=== PATIENT | female | born 1995 | race Caucasian/White ===

== ENCOUNTER 2016-09-10 23:31 | Emergency (ER) | payer OTHER, BC ==
[~2016-09-10] VITALS: Ht 162.6 cm; Wt 66.0 kg
[~2016-09-10 23:31] MED LIST: Z.0.BCPILL PO
[2016-09-10 23:33] VITALS: BP 157/88; PULSE 88; RESP 15; TEMP 98.8; O2SAT 100
[2016-09-11] MEDS ORDERED: DICL75TA PO (02:37)
[2016-09-11] MEDS ORDERED: CYCL1TAB29 PO (02:37)
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
[2016-09-11] MEDS ORDERED: CYCLOBENZAPRINE HCL 10 MG TAB PO ONE (02:45)
[2016-09-11] MEDS ORDERED: IBUPROFEN 600 MG TAB PO ONE (02:45)
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
== END 2016-09-11 04:07 | disposition home or self-care (01) ==
LOC: NEPD 23:31
DX: M54.2 Cervicalgia (principal); M54.9 Dorsalgia, unspecified; V89.2XXA Person injured in unspecified motor-vehicle accident, traffic, initial encounter
CPT/HCPCS: 72040; 99284

== ENCOUNTER 2017-09-20 01:42 | Inpatient (IN) | payer OTHER ==
[2017-09-20] VITALS (119 sets, daily range): BP systolic 98–164; BP diastolic 44–132; PULSE 67–155; RESP 16–20; TEMP 98.2–99.6; O2SAT 98
[~2017-09-20 01:42] MED LIST changes: +CYCL10TA PO; +DICL75TA PO; -Z.0.BCPILL PO
[2017-09-20] MEDS ORDERED: MINERAL OIL 10 ML VIAL TOPICAL PRN (02:15)
[2017-09-20] MEDS ORDERED: LIDOCAINE HCL 1% 50 ML VIAL INFIL PRN (02:15)
[2017-09-20] MEDS ORDERED: CITRIC ACID-SODIUM CITRATE LIQ 30 ML UDC PO SCH (02:15)
[2017-09-20] MEDS ORDERED: LIDOCAINE HCL 1% 50 ML VIAL I-DERMAL PRN (02:15)
[2017-09-20] MEDS ORDERED: LACTATED RINGER'S 1000 ML INJ 1,000 ML IV SCH (02:15)
[2017-09-20] MEDS ORDERED: SODIUM CHLORID 0.9% 500 ML INJ 500 ML IV PRN (02:15)
[2017-09-20] MEDS ORDERED: OXYTOCIN 30 UNITS-500ML PREMIX 500 ML IV ONE (02:15)
[2017-09-20] MEDS ORDERED: LACTATED RINGER'S 1000 ML INJ 1,000 ML IV PRN (02:15)
--- NOTE | 2017-09-20 02:15 | PD ---
HPI Chief Complaint Contractions Date Seen: September 20, 2017 Time Seen: 02:12 Travel History International Travel<30 Days: No Contact w/Intl Traveler<30Days: No Known Affected Area: No History of Present Illness HPI 22-year-old at 40 weeks 3 days comes in complaining of contractions since earlier today. She also has watery vaginal discharge and is concerned that she may have ruptured bag of water. She denies vaginal bleeding and is having normal movement. Patient denies any antepartum complications but was somewhat noncompliant in that she did not do her glucose tolerance test. And he sure was negative on admission today the patient states that her group B strep was negative Weeks Gestation: 40 Para: 1 : 2 History Past Medical History Medical History: Denies Significant Hx Obstetric History Obstetric History Spontaneous vaginal delivery Past Surgical History Narrative Surgical Tonsillectomy Family History Family History: Negative Social History Alcohol Use: No Tobacco Use: No Substance Abuse: No Allergies-Medications (Allergen,Severity, Reaction): Coded Allergies: No Known Allergies (Verified Allergy, Unknown, 08/04/17) Home Meds Active Scripts Cyclobenzaprine (Flexeril) 10 Mg Tab, 10 MG PO TID for Muscle Spasm, #30 TAB Prov:Vee Cochran DO 09/11/[address] (Diclofenac Sodium DR) 75 Mg Tabdr, 75 MG PO BID, #20 TAB Prov:Vee Cochran DO 09/11/16 Review of Systems Except as stated in HPI: all other systems reviewed are Neg Physical Exam Narrative GENERAL: Well-nourished, well-developed patient. SKIN: Warm and dry. HEAD: Normocephalic and atraumatic. EYES: No scleral icterus. No injection or drainage. ENT: No nasal drainage noted. Mucous membranes pink. Airway patent. NECK: Supple, trachea midline. No JVD. CARDIOVASCULAR: Regular rate and rhythm without murmurs, gallops, or rubs. RESPIRATORY: Breath sounds equal bilaterally. No accessory muscle use. ABDOMEN/GI: Abdomen soft, non-tender, bowel sounds present, no rebound, no guarding Gravid to [-40] weeks size Fundal Height: [-] GENITOURINARY: External Genitalia: intact and normal in appearance BUS glands: [Normal-] Cervix: [-Mid position] Dilatation: [-4] Effacement: [-90] Station: [--1] Presentation: [-Vertex] bulging bag of water Membranes: [intact or ruptured] intact Uterine Contractions: [-] Every 3-5 minutes FHT's: Category: [-] 1 Baseline: [-] 140 Reactive: [-] Moderate Variability: [-] Moderate Decels: [-] Absent EXTREMITIES: No cyanosis or edema. BACK: Nontender without obvious deformity. No CVA tenderness. NEUROLOGICAL: Awake and alert. Motor and sensory grossly within normal limits. Five out of 5 muscle strength in all muscle groups. Normal speech. Data Data Vital Signs Reviewed: Yes Group B Strep: Negative MDM Medical Record Reviewed: Yes Plan 22-year-old who is at 40 weeks 3 days in labor Admission to labor and delivery, Dr Stearns is aware Diagnosis Diagnosis: Primary Impression: 40 weeks gestation of Additional Impression: Irregular uterine contractions Katalina Jasso MD September 20, 2017 02:15
[2017-09-20] MEDS ORDERED: SODIUM CHLOR 0.9% 1000 ML INJ 1,000 ML IV PRN (02:35)
[2017-09-20 03:34] LABS: AUTOMATED NEUTROPHIL # 9.7 TH/MM3 (1.8-7.7); BASOPHIL % 0.4 % (0.0-2.0); EOSINOPHIL # 0.1 TH/MM3 (0-0.4); HEMATOCRIT 30.8 % (35.0-46.0); HEMOGLOBIN 10.5 GM/DL (11.6-15.3); LYMPH % 15.5 % (9.0-44.0); MEAN CELL VOLUME 90.2 FL (80.0-100.0); MEAN CORPUSCULAR HEMOGLOBIN 30.8 PG (27.0-34.0); MEAN CORPUSCULAR HGB CONC 34.2 % (32.0-36.0); MEAN PLATELET VOLUME 7.4 FL (7.0-11.0); MONO % 8.6 % (0.0-8.0); MONOCYTE # 1.1 TH/MM3 (0-0.9); NEUT % 74.5 % (16.0-70.0); PLATELET COUNT 313 TH/MM3 (150-450); RED BLOOD COUNT 3.42 MIL/MM3 (4.00-5.30); RED CELL DISTRIBUTION WIDTH 13.5 % (11.6-17.2)
--- NOTE | 2017-09-20 04:24 | PD.LABORPN ---
Subjective Subjective feels like contractions have spaced out since arrival; no LOF or VB, good FM, pain manageable Objective Vital Signs Vital Signs Date Time Temp Pulse Resp B/P (MAP) Pulse Ox O2 Delivery O2 Flow Rate FiO2 09/20/17 03:25 70 09/20/17 03:23 67 124/64 (84) 09/20/17 03:20 67 09/20/17 03:15 69 09/20/17 03:10 73 09/20/17 03:05 67 09/20/17 03:00 69 09/20/17 02:50 72 09/20/17 02:45 74 09/20/17 02:40 70 09/20/17 02:35 69 09/20/17 02:30 80 09/20/17 02:25 72 09/20/17 02:20 72 09/20/17 02:15 74 09/20/17 02:10 76 09/20/17 02:05 81 09/20/17 02:04 80 141/60 (87) Objective Pelvic Exam: Cervix: [mid] Dilatation: [5] Effacement: [90] Station: [-1] Presentation: [vtx] Membranes: [AROM'd clear this check] Uterine Contractions: [q7-9 min] FHT's: Category: [I] Baseline: [130s] Reactive: [y] Variability: [y] Decels: [n] Weeks Gestation: 40 Pt started active labor?: Yes Medical induction of labor?: No Artificial rupture of membrane: Yes Artificial ROM date: September 20, 2017 Assessment/Plan Problem List: (1) Labor and delivery, indication for care ICD Codes: O75.9 - Complication of labor and delivery, unspecified Assessment and Plan 22 yo with vick IUP at 40w3d admit for labor 1) labor: progressing on own, changed from 4>5cm since admission, AROM'd clear this check, continue active mgmt, pt desires epidural 2) GBS neg 3) status: vtx Cat I tracing Altagracia Stearns MD September 20, 2017 04:24
[2017-09-20] MEDS ORDERED: ONDANSETRON HCL 4 MG/2 ML VIAL ONE (04:51)
[2017-09-20] MEDS ORDERED: fentaNYL 2MCG-BUPIV 0.125% INJ 100 ML ONE (06:21)
[2017-09-20] MEDS ORDERED: ePHEDrine/NS 25 MG/5 ML SYRINGE ONE (06:21)
[2017-09-20] MEDS ORDERED: LIDOCAINE 1%/EPINEPHrine 1:100,000 SOLN 20 ML VIAL ONE (06:30)
--- NOTE | 2017-09-20 07:23 | HHI.PR ---
DIGESTER OPERATOR HELPER Note Note S: Doing well comfortable status post epidural, no complaints. O: Exam: /-1, IUPC placed. FHTs: 120s, moderate variability, accelerations present, no decelerations. TOCO: Contractions every 3 minutes approximately A/P 22-year-old 010 at 40 weeks and 3 days here today for labor 1. IUP: Category 1 tracing -Cephalic by exam, GBS negative, EFW 7/2-8 pounds. -Female fetus 2. Labor: Status post AROM at 4:15 AM today, continue with augmentation, IUPC placed this check, may need Pitocin if inadequate MVUs or not making change, discussed arrest of labor and indications for with patient if is not making active change at this point over the next 4-6 hours -Comfortable status post epidural Gene Reyes MD September 20, 2017 07:23
[2017-09-20] MEDS ORDERED: OXYTOCIN 30 UNITS-500ML PREMIX 500 ML IV PRN ×2 (07:30→08:30)
[2017-09-20] MEDS ORDERED: ePHEDrine/NS 25 MG/5 ML SYRINGE IV PUSH PRN (09:15)
[2017-09-20] MEDS ORDERED: DO NOT ADMINISTER ANTICOAGULANTS PRN (09:15)
[2017-09-20] MEDS ORDERED: fentaNYL 2MCG-BUPIV 0.125% 100 ML EPIDURAL PRN (09:15)
[2017-09-20] MEDS ORDERED: NO SYSTEM NARCOTICS PRN (09:15)
--- NOTE | 2017-09-20 13:53 | HHI.PR ---
FENCE INSTALLER FOREMAN Note Note Care update: Nurse notified me that they have been pressuring the patient for one half hours or so, has appreciated some descent but mom is feeling somewhat exhausted, there is category 1 tracing, discussed with patient that allow 2-3 hours of pushing with noticeable descent, but there is noticed in a would be suggested, if making descent and there is maternal exhaustion and vacuum as an option. Discussed the risks and benefits, ect of a vacuum (See below). At this time will allow patient to rest for 30 minutes and return to pushing shortly after. Consent: The risks (which are relatively low and generally are viewed as acceptable for the above indications by ACOG), benefits, alternatives, expected outcomes, and risks of declining treatment were explained and discussed with the patient risks including but not limited to scalp laceration, retinal hemorrhages, brachial plexus injury, cephalohematoma formation, and subgaleal or intracranial hemorrhage, which typically are transient but can results in permanent neurological sequela. Maternal risk included but not limited to perineal laceration and failure of vacuum and potentially needed a . Gene Reyes MD September 20, 2017 13:53
[2017-09-20] MEDS ORDERED: METHYLERGONOVINE MALEATE 0.2 MG/ML VIAL ONE ×2 (16:00)
[2017-09-20] MEDS ORDERED: MEASLES, MUMPS, RUBELLA VACCINE 0.5 ML VIAL SQ ONE (16:00)
[2017-09-20] MEDS ORDERED: DIPHTH/TETANUS/ACEL PERTUSSIS (BOOSTER) 0.5 ML VIAL/PFS IM ONE (16:00)
[2017-09-20] MEDS ORDERED: LIDOCAINE HCL 1% PF 5 ML AMPULE ONE ×2 (16:04→16:05)
--- NOTE | 2017-09-20 16:24 | HHI.DCPOC ---
Discharge Care Plan Diagnosis: (1) Normal vaginal delivery (2) Normal labor (3) 40 weeks gestation of Your Health Problems Are: Vaginal delivery Report Symptoms to Your Doctor -Temperature above 100.5 degrees -Redness, of incision or excessive or foul smelling drainage -Unusual pain or calf pain -Increased vaginal bleeding -Painful or difficulty urinating -Feelings of extreme sadness or anxiety after 2 weeks Goals to Promote Your Health * To prevent worsening of your condition and complications * To maintain your health at the optimal level Directions to Meet Your Goals Take your medications as prescribed Follow your dietary instruction Follow activity as directed Ensure plenty of rest for recovery Drink fluids for hydration Keep your appointments as scheduled Take your immunizations and boosters as scheduled If your symptoms worsen call your PCP, if no PCP go to Urgent Care Center or Emergency Room Smoking is Dangerous to Your Health. Avoid second hand smoke Call the 24-hour crisis hotline for domestic abuse at Gene Reyes MD September 20, 2017 16:24
--- NOTE | 2017-09-20 16:37 | PD.OB.DELI ---
Weeks gestation: 40 (40w3) Pt started active labor?: Yes Medical induction of labor?: No Artificial rupture of membrane: Yes Artificial ROM date: September 20, 2017 Anesthesia: Epidural, Lidocaine local to perineum (8 cc of 1% lidocaine without epinephrine) Episiotomy: Midline Vaginal Delivery: Normal (Failed vacuum, with 2 pop offs.), Vacuum (Failed vacuum, with 2 pop offs.) Presentation: Occiput anterior, Vertex Nuchal Cord: Other (Nuchal around torso and posterior neck) Delayed cord clamping (45 sec): Yes Shoulder Dystocia: Other (No dystocia) Infant: Female, Single Delivery date: September 20, 2017 Delivery time: 15:54 One Minute : 7 Five Minute : 9 Placenta: Spontaneous delivery, Intact, 3 vessel cord Laceration: Episiotomy, 2 deg Repair: Vicryl running Estimated blood loss: 500 cc Additional Information Preoperative diagnosis: 1. Intrauterine at 40 weeks and 3 days 2. Maternal exhaustion Postop diagnosis 1. Same as above Procedure 1. Spontaneous vaginal delivery, failed vacuum attempted vaginal delivery Surgeon Dr. Gene Reyes Mechanical Oxidizer: Labor and delivery nursing staff Findings: 1. Uterine atony, resolved with fundal massage and 0.2 milligrams of IM methargen 2. Normal anatomy, viable female terminal meconium, significant caplet, several small scalp lacerations 3. Terminal meconium Anesthesia: Epidural Specimen: Placenta to disposal Estimated blood loss: 500 cc Fluid replacement: Lactated Ringer's and Pitocin Urine output: None recorded DVT prophylaxis: Sequential compression devices Antibiotics: None required Counts: correct x2 Time out done: yes Disposition: Stable to Indications: Patient is a 22-year-old now P1011 who presented in active labor, she was artificially ruptured and began on Pitocin for augmentation, she progressed to complete with reassuring heart tones, the nurse pushed with her for around 1.5 to 2 hours approximately, i was notified that the patient was beginning to feel exhausted and I presented the room to check and push with the patient, she was counseled on vacuum again, please see previous progress note for those details, she was also found to be in direct OP position via bedside ultrasound, I also counseled for for manual vaginal rotation. Description of procedure: The bed was broken and prepared for delivery, with a firm clockwise rotation the head was grasped and slowly rotated to where it was felt to be in either transverse or occiput anterior position, the fetus was at +2 station and in occiput anterior position, the bladder was drained, and her anesthesia was adequate, the vacuum was placed 2 cm anterior to the posterior fontanelle over the sagital suture. Suction was applied to green and with coordination of maternal pushing efforts downward traction was applied with the vacuum, 2 pop offs were experienced after 4-6 pushing efforts with her contractions, at this time the had a distended somewhat further and the vacuum was removed from the field. Continue to push with the patient, if oligo is a tight band of posterior tissue that was upholding progress, a midline episiotomy was made, we continue to push into the head was , supported perineum the head delivered in a occiput anterior position, the head upon was allowed to restitute naturally, with gentle downward guidance anterior shoulder was delivered followed by gentle upper guidance for the posterior shoulder, the torso and lower extremities delivered with ease with continued perineal support. The had spontaneous cry and was placed on mom 's abdomen for skin to skin contact, we allow delayed cord clamping. After the cord was clamped and cut, cord blood was obtained. Pitocin was bolused and with fundal massage the placenta was delivered, there is some uterine atony which resolved with bimanual massage and 1 dose of IM methargen. The second-degree laceration was repaired with running Vicryl after anesthetizing the perineum with 1% lidocaine. The patient tolerated the procedure well and was left in the birthing suite with her . Gene Reyes MD September 20, 2017 16:37
[2017-09-20] MEDS ORDERED: OXYTOCIN 30 UNITS-500ML PREMIX 500 ML IV SCH (18:45)
[2017-09-20] MEDS ORDERED: ALUMINUM/MAGNESIUM/SIMETH 30 ML CUP PO PRN (18:45)
[2017-09-20] MEDS ORDERED: ZOLPIDEM TARTRATE 5 MG TAB PO PRN (18:45)
[2017-09-20] MEDS ORDERED: oxyCODONE/ACETAMINOPHEN 5 MG/325 MG TAB PO PRN ×2 (18:45)
[2017-09-20] MEDS ORDERED: WITCH HAZEL 50%/GLYCERIN 12.5% 40 PAD JAR TOPICAL PRN (18:45)
[2017-09-20] MEDS ORDERED: SODIUM CHLORIDE 0.9% FLUSH 10 ML FLUSH IV FLUSH PRN (18:45)
[2017-09-20] MEDS ORDERED: DOCUSATE SODIUM 50 MG/SENNA 8.6 MG TAB PO PRN (18:45)
[2017-09-20] MEDS ORDERED: BENZOCAINE 20% TOPICAL SPRAY 60 ML CAN TOPICAL PRN (18:45)
[2017-09-20] MEDS ORDERED: ONDANSETRON ODT 4 MG TAB PO PRN (18:45)
[2017-09-20] MEDS: IBUPROFEN 800 MG TAB PO PRN (19:06)
[2017-09-20] MEDS: ACETAMINOPHEN 325 MG TAB PO PRN (19:06)
[2017-09-20] MEDS ORDERED: SODIUM CHLORIDE 0.9% FLUSH 10 ML FLUSH IV FLUSH SCH (21:00)
[2017-09-21] MEDS: ACETAMINOPHEN 325 MG TAB PO PRN ×4 (00:32→19:25)
[2017-09-21] MEDS: IBUPROFEN 800 MG TAB PO PRN ×2 (07:41→19:25)
[2017-09-21 08:00] VITALS: BP 114/64; PULSE 76; RESP 16; TEMP 97.4
--- NOTE | 2017-09-21 08:10 | HHI.OB ---
Subjective Post Day: 1 Remarks pt doing well, Objective Vitals/I&O Vital Signs Date Time Temp Pulse Resp B/P (MAP) Pulse Ox O2 Delivery O2 Flow Rate FiO2 09/20/17 20:00 98.4 09/20/17 20:00 81 18 124/67 (86) 98 09/20/17 17:48 18 09/20/17 17:45 83 120/69 (86) 09/20/17 17:35 16 09/20/17 17:30 81 125/64 (84) 09/20/17 17:20 18 09/20/17 17:15 76 122/64 (83) 09/20/17 17:05 18 09/20/17 17:00 86 119/70 (86) 09/20/17 16:50 20 09/20/17 16:45 97 114/60 (78) 09/20/17 16:30 113/68 (83) 09/20/17 16:30 99.6 20 09/20/17 16:28 95 105/63 (77) 09/20/17 16:15 97 98/44 (62) 09/20/17 16:01 107 129/58 (81) 09/20/17 15:30 152 157/118 (131) 09/20/17 15:15 132 152/87 (108) 09/20/17 15:00 99.3 113 20 151/132 (138) 09/20/17 14:46 97 164/70 (101) 09/20/17 14:30 105 125/68 (87) 09/20/17 14:15 89 112/59 (76) 09/20/17 14:00 100 122/65 (84) 09/20/17 13:45 109 127/63 (84) 09/20/17 13:40 102 09/20/17 13:30 88 145/61 (89) 09/20/17 13:15 105 143/73 (96) 09/20/17 13:00 118 136/99 (111) 09/20/17 12:45 155 147/80 (102) 09/20/17 12:30 103 127/66 (86) 09/20/17 12:30 103 09/20/17 12:25 106 09/20/17 12:20 106 09/20/17 12:15 98 123/61 (81) 09/20/17 12:15 102 09/20/17 12:00 99 122/67 (85) 09/20/17 12:00 98.3 09/20/17 12:00 18 09/20/17 12:00 107 09/20/17 11:55 109 09/20/17 11:50 94 09/20/17 11:45 99 09/20/17 11:45 94 113/63 (80) 09/20/17 11:40 96 09/20/17 11:35 99 09/20/17 11:30 100 115/60 (78) 09/20/17 11:30 100 09/20/17 11:25 108 09/20/17 11:20 96 09/20/17 11:15 97 116/64 (81) 09/20/17 11:15 94 09/20/17 11:10 91 09/20/17 11:05 89 09/20/17 11:00 91 09/20/17 11:00 98.2 16 09/20/17 11:00 90 113/62 (79) 09/20/17 10:55 86 09/20/17 10:50 88 09/20/17 10:45 80 09/20/17 10:45 85 117/60 (79) 09/20/17 10:40 86 09/20/17 10:35 87 09/20/17 10:30 83 09/20/17 10:30 113/65 (81) 09/20/17 10:25 86 09/20/17 10:20 85 09/20/17 10:15 84 09/20/17 10:15 88 117/63 (81) 09/20/17 10:10 83 09/20/17 10:05 83 09/20/17 10:00 80 16 117/64 (81) 09/20/17 10:00 98.2 09/20/17 09:55 81 09/20/17 09:50 86 09/20/17 09:45 86 113/61 (78) 09/20/17 09:40 84 09/20/17 09:35 83 09/20/17 09:30 80 110/54 (72) 09/20/17 09:25 80 09/20/17 09:20 75 09/20/17 09:16 77 111/53 (72) 09/20/17 09:15 75 09/20/17 09:10 80 09/20/17 09:05 94 09/20/17 09:00 18 09/20/17 09:00 79 119/70 (86) 09/20/17 09:00 98.4 09/20/17 08:55 79 09/20/17 08:50 78 09/20/17 08:45 80 09/20/17 08:30 104/53 (70) 09/20/17 08:30 75 Objective Remarks GENERAL: Well-nourished, well-developed patient. CARDIOVASCULAR: Regular rate and rhythm without murmurs, gallops, or rubs. RESPIRATORY: Breath sounds equal bilaterally. No accessory muscle use. ABDOMEN/GI: Abdomen soft, non-tender. Fundus: Firm, non-tender at umbilicus. GENITOURINARY: Light to moderate bleeding. EXTREMITIES: No cyanosis or edema, non-tender, without signs of DVT. Medications and IVs Current Medications Medications (Trade) Dose Ordered Sig/Duran Route Start Time Stop Time Status Last Admin ([facility] [place] Nursing Information) No systemic narcotics to be given except... UNSCH PRN .XX 09/20/17 09:15 09/21/17 09:14 ([facility] [place] Nursing Information) DO NOT ADMINISTER ANY ANTICOAGUL... UNSCH PRN .XX 09/20/17 09:15 09/21/17 09:14 (ePHEDrine/NS 25 MG/5 ML SYR) 10 mg UNSCH PRN IV PUSH 09/20/17 09:15 09/21/17 09:14 (NS Flush) 2 ml BID IV FLUSH 09/20/17 21:00 (NS Flush) 2 ml UNSCH PRN IV FLUSH 09/20/17 18:45 (Tylenol) 650 mg Q4H PRN PO 09/20/17 18:45 09/21/17 07:41 (Motrin) 800 mg Q8H PRN PO 09/20/17 18:45 09/21/17 07:41 (Percocet 5-325 Mg) 1 tab Q4H PRN PO 09/20/17 18:45 (Percocet 5-325 Mg) 2 tab Q4H PRN PO 09/20/17 18:45 (Americaine 20% Top Spr) 1 spray Q4H PRN TOPICAL 09/20/17 18:45 09/21/17 07:42 (Tucks Pads) 1 applic QID PRN TOPICAL 09/20/17 18:45 09/21/17 07:42 (Liberty-Colace) 2 tab Q12H PRN PO 09/20/17 18:45 09/21/17 07:41 (Ambien) 5 mg HS PRN PO 09/20/17 18:45 (Mag-Al Plus Susp Liq) 15 ml Q8H PRN PO 09/20/17 18:45 (Zofran Odt) 4 mg Q6H PRN PO 09/20/17 18:45 Assessment/Plan Problem List: (1) Labor and delivery, indication for care ICD Codes: O75.9 - Complication of labor and delivery, unspecified (2) Normal vaginal delivery ICD Codes: O80 - Encounter for full-term uncomplicated delivery Assessment and Plan PPD #1 routine PP care Discharge Planning routine 1-2 d PP Attending Attestation pt seen by Tania Vail MD September 21, 2017 08:10
[2017-09-21 19:00] VITALS: BP 119/64; PULSE 76; RESP 18; TEMP 97.6
[2017-09-22] MEDS: ACETAMINOPHEN 325 MG TAB PO PRN (04:03)
[2017-09-22] MEDS: IBUPROFEN 800 MG TAB PO PRN (04:03)
--- NOTE | 2017-09-22 08:06 | HHI.OB ---
Subjective Post Day: 2 Remarks doing well, baby has jaundice, may need to stay longer Objective Vitals/I&O Vital Signs Date Time Temp Pulse Resp B/P (MAP) Pulse Ox O2 Delivery O2 Flow Rate FiO2 09/21/17 19:00 97.6 18 09/21/17 19:00 76 119/64 (82) Objective Remarks GENERAL: Well-nourished, well-developed patient. CARDIOVASCULAR: Regular rate and rhythm without murmurs, gallops, or rubs. RESPIRATORY: Breath sounds equal bilaterally. No accessory muscle use. ABDOMEN/GI: Abdomen soft, non-tender. Fundus: Firm, non-tender at umbilicus. GENITOURINARY: Light to moderate bleeding. EXTREMITIES: No cyanosis or edema, non-tender, without signs of DVT. Medications and IVs Current Medications Medications (Trade) Dose Ordered Sig/Duran Route Start Time Stop Time Status Last Admin (NS Flush) 2 ml BID IV FLUSH 09/20/17 21:00 (NS Flush) 2 ml UNSCH PRN IV FLUSH 09/20/17 18:45 (Tylenol) 650 mg Q4H PRN PO 09/20/17 18:45 09/22/17 04:03 (Motrin) 800 mg Q8H PRN PO 09/20/17 18:45 09/22/17 04:03 (Percocet 5-325 Mg) 1 tab Q4H PRN PO 09/20/17 18:45 (Percocet 5-325 Mg) 2 tab Q4H PRN PO 09/20/17 18:45 (Americaine 20% Top Spr) 1 spray Q4H PRN TOPICAL 09/20/17 18:45 09/21/17 07:42 (Tucks Pads) 1 applic QID PRN TOPICAL 09/20/17 18:45 09/21/17 07:42 (Liberty-Colace) 2 tab Q12H PRN PO 09/20/17 18:45 09/21/17 07:41 (Ambien) 5 mg HS PRN PO 09/20/17 18:45 (Mag-Al Plus Susp Liq) 15 ml Q8H PRN PO 09/20/17 18:45 (Zofran Odt) 4 mg Q6H PRN PO 09/20/17 18:45 Assessment/Plan Problem List: (1) Labor and delivery, indication for care ICD Codes: O75.9 - Complication of labor and delivery, unspecified (2) Normal vaginal delivery ICD Codes: O80 - Encounter for full-term uncomplicated delivery Assessment and Plan PPD #2 routine PP care Discharge Planning routine 2 d PP Rosario Luong MD September 22, 2017 08:06
== END 2017-09-22 11:58 | disposition home or self-care (01) | DRG 775 ==
LOC: HOBED 01:42 → H2EA 02:17 → H1EA 18:15
PROVIDERS: ADMIT Obstetrics & Gynecology; ATTEND Obstetrics & Gynecology
PROC: 10E0XZZ Delivery of Products of Conception, External Approach (ICD-10-PCS; principal; 2017-09-20)
PROC: 0KQM0ZZ Repair Perineum Muscle, Open Approach (ICD-10-PCS; 2017-09-20)
PROC: 0W8NXZZ Division of Female Perineum, External Approach (ICD-10-PCS; 2017-09-20)
PROC: 10907ZC Drainage of Amniotic Fluid, Therapeutic from Products of Conception, Via Natural or Artificial Opening (ICD-10-PCS; 2017-09-20)
PROC: 10H07YZ Insertion of Other Device into Products of Conception, Via Natural or Artificial Opening (ICD-10-PCS; 2017-09-20)
PROC: 00HU33Z Insertion of Infusion Device into Spinal Canal, Percutaneous Approach (ICD-10-PCS; 2017-09-20)
PROC: 3E0R3BZ Introduction of Anesthetic Agent into Spinal Canal, Percutaneous Approach (ICD-10-PCS; 2017-09-20)
DX: O48.0 Post-term pregnancy (principal); O32.8XX0 Maternal care for other malpresentation of fetus, not applicable or unspecified; O66.5 Attempted application of vacuum extractor and forceps; O69.81X0 Labor and delivery complicated by cord around neck, without compression, not applicable or unspecified; O70.1 Second degree perineal laceration during delivery; O75.89 Other specified complications of labor and delivery; O75.81 Maternal exhaustion complicating labor and delivery; O77.0 Labor and delivery complicated by meconium in amniotic fluid; Z3A.40 40 weeks gestation of pregnancy; Z37.0 Single live birth
CPT/HCPCS: 59025; 80307; 84112; 85025; 86900; 86901; G0481; J2210; J2405; J2590; J3010